=== PATIENT | male | born 1965 | race American Indian/Alaskan Native ===

== ENCOUNTER 2019-01-09 14:18 | Emergency (ER) | payer SELFPAY ==
--- NOTE | 2019-01-09 14:26 | Emergency Department Report ---
Blank Doc - Documentation Documentation: This is a 53-year-old male that presents with nausea vomiting and abdominal pain x2 days. Denies any chest pain or shortness of breathe. Denies headache or any other complaints/symptoms. This initial assessment diagnostic orders/clinical plan/treatment(s) is/are subject to change based on patient's health status, clinical progression and re- assessment by fellow clinical providers in the ED. Further treatment and workup at subsequent clinical providers discretion. Patient/guardians urged not to elope from ED s their condition may be serious if not clinically assessed and managed. Initial orders include: 1-Patient sent to [facility] for further evaluation and treatment 2- Labs 2- UA
[2019-01-09 14:50] LABS: Bilirubin,Urine NEG (Negative); Blood,Urine NEG (Negative); Color,Urine Amber (Yellow); Mucus,Urine 3+ /HPF
[2019-01-09] MEDS ORDERED: ZOFRAN IV ONE (15:02)
[2019-01-09] MEDS ORDERED: PEPCID IV ONE (15:02)
[2019-01-09] MEDS ORDERED: NACL 0.9% 1000 ML 1,000 ML IV ONE (15:02)
[2019-01-09 15:05] LABS: Protein,Urine >500 mg/dL (Negative)
[2019-01-09 15:06] LABS: Hematocrit 53.9 % (35.5-45.6); Hemoglobin 18.9 gm/dl (11.8-15.2); Mean Corpuscular HGB Conc 35 % (32-34); Mean Corpuscular Volume 86 fl (84-94); Platelet Count 323 K/mm3 (140-440); Red Blood Count 6.28 M/mm3 (3.65-5.03); Red Cell Distribution Width 13.3 % (13.2-15.2)
[2019-01-09 15:21] LABS: Alanine Aminotransferase 14 units/L (7-56); Albumin 4.6 g/dL (3.9-5); BUN/Creatinine Ratio 30; Blood Urea Nitrogen 27 mg/dL (9-20); Calcium 9.7 mg/dL (8.4-10.2); Hemolysis Index 82
--- NOTE | 2019-01-09 16:45 | Emergency Department Report ---
Addendum entered and electronically signed by NANCIE SLOAN PA 01/09/19 20:21: Patient given prescription for Norvasc and HCTZ. Original Note: <SOREN NERI - Last Filed: 01/09/19 16:41> ED N/V/D HPI - General Chief complaint: Nausea/Vomiting/Diarrhea Stated complaint: VOMITING,COLD SWEATS/CHEST PAIN Time Seen by Provider: 01/09/19 14:21 Source: patient Mode of arrival: Ambulatory Limitations: No Limitations - History of Present Illness Initial comments: Patient is a 53-year-old -[place] male who is presenting with nausea vomiting for the past 2 days. Patient states he's had some episodes of diaphoresis as well. States the nausea vomiting accompanied with some cramping in the epigastrium. States the pain is very minimal as a 2 out of 10 in severity. Patient denies any cough cold congestion and body aches at this time. Patient does have a history of hypertension but does not take medications at this time. - Related Data Previous Rx's Medication Instructions Recorded Last Taken Type Dicyclomine [Bentyl] 40 mg PO QID 3 Days #12 tablet 01/09/19 Unknown Rx Ondansetron [Zofran ODT TAB] 8 mg PO Q8HR PRN #12 tab.rapdis 01/09/19 Unknown Rx Allergies Allergy/AdvReac Type Severity Reaction Status Date / Time No Known Allergies Allergy Unverified 01/09/19 14:21 ED Review of Systems Comment: All other systems reviewed and negative ED Past Medical Hx - Past Medical History Previous Medical History?: No - Surgical History Past Surgical History?: Yes Additional Surgical History: facial surgery - Social History Smoking Status: Never Smoker Substance Use Type: None - Medications Home Medications: Home Medications Medication Instructions Recorded Confirmed Last Taken Type Dicyclomine [Bentyl] 40 mg PO QID 3 Days #12 tablet 01/09/19 Unknown Rx Ondansetron [Zofran ODT TAB] 8 mg PO Q8HR PRN #12 tab.rapdis 01/09/19 Unknown Rx ED Physical Exam - General Limitations: No Limitations General appearance: alert, in no apparent distress - Head Head exam: Present: atraumatic, normocephalic - Eye Eye exam: Present: normal appearance - ENT ENT exam: Present: mucous membranes moist - Neck Neck exam: Present: normal inspection - Respiratory Respiratory exam: Present: normal lung sounds bilaterally. Absent: respiratory distress, wheezes, rales, rhonchi - Cardiovascular Cardiovascular Exam: Present: regular rate, normal rhythm. Absent: systolic murmur, diastolic murmur, rubs, gallop - GI/Abdominal GI/Abdominal exam: Present: soft, normal bowel sounds. Absent: distended, tenderness, guarding, rebound, rigid - Rectal Rectal exam: Present: deferred - Extremities Exam Extremities exam: Present: normal inspection - Back Exam Back exam: Present: normal inspection - Neurological Exam Neurological exam: Present: alert, oriented X3 - Psychiatric Psychiatric exam: Present: normal affect, normal mood - Skin Skin exam: Present: warm, dry, intact, normal color. Absent: rash ED Medical Decision Making - Lab Data Result diagrams: 01/09/19 14:46 01/09/19 14:46 Lab Results 01/09/19 01/09/19 01/09/19 Range/Units 14:34 14:46 14:46 WBC 9.7 (4.5-11.0) K/mm3 RBC 6.28 H (3.65-5.03) M/mm3 Hgb 18.9 H (11.8-15.2) gm/dl Hct 53.9 H (35.5-45.6) % MCV 86 (84-94) fl MCH 30 (28-32) pg MCHC 35 H (32-34) % RDW 13.3 (13.2-15.2) % Plt Count 323 (140-440) K/mm3 Lymph % (Auto) Ribbon Sweatband Operator [place] % (Auto) Ribbon Sweatband Operator Eos % (Auto) Ribbon Sweatband Operator Baso % (Auto) Ribbon Sweatband Operator Lymph # Ribbon Sweatband Operator [place] # Ribbon Sweatband Operator Eos # Ribbon Sweatband Operator Baso # Ribbon Sweatband Operator Seg Neutrophils % Ribbon Sweatband Operator Seg Neutrophils # Ribbon Sweatband Operator Sodium 136 L (137-145) mmol/L Potassium 3.9 (3.6-5.0) mmol/L Chloride 94.6 L (98-107) mmol/L Carbon Dioxide 24 (22-30) mmol/L Anion Gap 21 mmol/L BUN 27 H (9-20) mg/dL Creatinine 0.9 (0.8-1.5) mg/dL Estimated GFR > 60 ml/min BUN/Creatinine Ratio 30 % Glucose 129 H (75-100) mg/dL Calcium 9.7 (8.4-10.2) mg/dL Total Bilirubin 2.70 H (0.1-1.2) mg/dL AST 25 (5-40) units/L ALT 14 (7-56) units/L Alkaline Phosphatase 54 (35-129) units/L Total Protein 8.1 (6.3-8.2) g/dL Albumin 4.6 (3.9-5) g/dL Albumin/Globulin Ratio 1.3 % Lipase 25 (13-60) units/L Urine Color Zaynab (Yellow) Urine Turbidity Clear (Clear) Urine pH 5.0 (5.0-7.0) Ur Specific [place] 1.032 H (1.003-1.030) Urine Protein >500 (Negative) mg/dL Urine Glucose (UA) Neg (Negative) mg/dL Urine Ketones 20 (Negative) mg/dL Urine Blood Neg (Negative) Urine Nitrite Neg (Negative) Urine Bilirubin Neg (Negative) Urine Urobilinogen 4.0 (<2.0) mg/dL Ur Leukocyte Esterase Neg (Negative) Urine WBC (Auto) 4.0 (0.0-6.0) /HPF Urine RBC (Auto) 7.0 (0.0-6.0) /HPF U Epithel Cells (Auto) 1.0 (0-13.0) /HPF Urine Mucus 3+ /HPF ED Disposition Clinical Impression: Elevated bilirubin, Elevated blood pressure reading without diagnosis of hypertension Nausea and vomiting Qualifiers: Vomiting type: unspecified Vomiting Intractability: non-intractable Qualified Code(s): R11.2 - Nausea with vomiting, unspecified Abdominal pain Qualifiers: Abdominal location: unspecified location Qualified Code(s): R10.9 - Unspecified abdominal pain Disposition: DC-01 TO HOME OR SELFCARE Condition: Stable Instructions: Abdominal Pain (ED), Acute Nausea and Vomiting (ED) Additional Instructions: He will need to follow-up with primary care physician and commercial interior designer regarding in further evaluation of abdominal pain with possible enlarged p ancreatic head. He will also need to follow up with primary care regarding elevated blood pressure. Please keep a record a few blood pressure daily and take 2 year first primary care physician with you Take Zofran and Bentyl for stomach upset. If symptoms returns, return to the emergency room [facility] Please start off with bland diet to include rice, applesauce, benign and toes over the next 3 days and then you can advance. Avoid spicy food and carbonated an acidic beverages. Referrals: JUAN DURANT MD [Primary Care Provider] - 01/11/19 [facility] [Provider Group] - 01/11/19 Forms: Work/School Release Form(ED), Accompanied Note <NANCIE SLOAN - Last Filed: 01/09/19 20:18> ED N/V/D HPI - History of Present Illness Initial comments: His stated inpatient triage note that he was having chest pain also the patient denied having any chest pain. Patient also denies any alcohol use. MD complaint: nausea, vomiting, abdominal pain Onset/Timin -: days(s) Description of Vomiting: food contents, watery, bilious Associated Abdominal Pain: Yes (cramp into epigastric area) Location: epigastric Radiation: none Severity: mild Pain Scale: 2 Quality: cramping Consistency: constant Improves with: none Worsens with: none Context: other (unknown) Associated Symptoms: diaphoresis, fever/chills (chills), loss of appetite, nausea/vomiting. denies: myalgias, chest pain, cough, headaches, malaise, rash, dysuria, shortness of breath, syncope, weakness ED Review of Systems ROS: Stated complaint: VOMITING,COLD SWEATS/CHEST PAIN Other details as noted in HPI Constitutional: chills ENT: denies: throat pain, congestion Respiratory: denies: cough, shortness of breath, SOB with exertion, SOB at rest, wheezing Cardiovascular: denies: chest pain, palpitations, dyspnea on exertion, edema, syncope Gastrointestinal: abdominal pain, nausea, vomiting. denies: diarrhea, constip ation, hematemesis, melena, hematochezia Genitourinary: denies: dysuria, hematuria Musculoskeletal: denies: back pain, joint swelling, arthralgia, myalgia Skin: denies: rash Neurological: denies: headache, numbness, paresthesias, abnormal gait, vertigo ED Past Medical Hx - Past Medical History Previous Medical History?: No - Surgical History Past Surgical History?: Yes - Family History Family history: hypertension (he has hypertension) ED Physical Exam - Eye Eye exam: Present: PERRL, EOMI. Absent: scleral icterus - ENT ENT exam: Present: normal exam, normal orophraynx, TM's normal bilaterally, normal external ear exam - Neck Neck exam: Present: full ROM. Absent: tenderness - Respiratory Respiratory exam: Absent: chest wall tenderness - Cardiovascular Cardiovascular Exam: Present: normal heart sounds - GI/Abdominal GI/Abdominal exam: Absent: organomegaly, mass, bruit - Extremities Exam Extremities exam: Present: full ROM, normal capillary refill, other (No cce. + 2 pulses in all extremities, no neurovascular compromise). Absent: tenderness, pedal edema, joint swelling - Back Exam Back exam: Present: full ROM, other (embolism without any difficulties). Absent: tenderness, CVA tenderness (R), CVA tenderness (L), muscle spasm, rash noted - Neurological Exam Neurological exam: Present: normal gait ED Course Vital Signs 01/09/19 01/09/19 01/09/19 14:25 17:07 17:21 Temperature 98.2 F 98.4 F Pulse Rate 88 88 88 Respiratory 16 16 Rate Blood Pressure 189/127 180/126 180/126 Blood Pressure [Right] O2 Sat by Pulse 98 97 Oximetry 01/09/19 01/09/19 01/09/19 17:23 18:10 19:08 Temperature Pulse Rate Respiratory 16 Rate Blood Pressure 146/96 Blood Pressure 146/96 [Right] O2 Sat by Pulse Oximetry - Reevaluation(s) Reevaluation #1: 01/09/19 17:44 Patient is here for fever, sweats nausea vomiting and abdominal pain. He was found to have elevated blood pressure and was given labetalol and his blood pressure remained high. He said his nausea and vomiting and abdominal pain is better. He received 1 L of normal saline while in emergency room. He is awaiting his ultrasound results due to elevated bilirubin. Patient received additional 20 mg of labetalol IV and will recheck his blood pressure. Abdomen is soft, nontender to palpate. Reevaluation #2: 01/09/19 18:34 Patient reports that he is feeling much better. He is nontender to palpate in his abdomen and blood pressure has stabilized. I will give patient Norvasc and HCTZ before he goes and will give prescription for Norvasc and HCTZ. Reevaluation #3: 01/09/19 20:09 Patient is stable and he was given Norvasc and HCTZ prior to discharge. Ultrasound is stable except that mentioned the patient with enlarged pancreatic head which is questionable and CT scan is recommended. I spoke with Dr. Church who reviewed patient's chart including labs and patient can discharged home to follow-up with commercial interior designer and also to follow up with his primary care for management of that pressure. Patient currently has no nausea, vomiting and her abdominal pain. ED Medical Decision Making - Lab Data Result diagrams: 01/09/19 14:46 01/09/19 14:46 - Radiology Data Radiology results: report reviewed Ultrasound of abdomen limited dictated by radiologist and reportedly by myself. See details below Findings [facility] [address] [place] [address] Ultrasound Report Signed Patient: CASTRO CARVAJAL MR#: [id number] : 1965 Acct:[id number] Age/Sex: 53 / M ADM Date: 01/09/19 Loc: ED Attending Dr: Ordering Physician: SOREN NERI MD Date of Service: 01/09/19 Procedure(s): US abdomen limited Accession Number(s): [id number] cc: SOREN NERI MD FINAL REPORT PROCEDURE: Limited abdominal ultrasound. TECHNIQUE: Real-time sonography was performed of the right upper quadrant of the abdomen with image documentation. CPT 54220 HISTORY: Right upper quadrant abdominal pain with nausea and vomiting. COMPARISON: No prior studies are available for comparison. FINDINGS: The pancreatic head may be enlarged, but this is suboptimally visualized. I would recommend a CT scan following oral and IV contrast for better evaluation. The liver has uniform echogenicity. There are no focal masses. The portal vein is patent by color flow imaging. The proximal portion of the abdominal aorta has a normal caliber. The inferior vena cava is patent. The gallbladder is adequately distended with normal wall thickness. There are no gallstones. The common hepatic duct measures 2.6 millimeters. The right kidney appears normal in size. There is no hydronephrosis. There is a calculus in the right kidney measuring 5 millimeters in maximum dimension. IMPRESSION: Nonobstructing right renal calculus. Possible enlargement of the pancreatic head with further evaluation recommended. Transcribed By: MRM Dictated By: BROOKE STEPHENS MD Electronically Authenticated By: BROOKE STEPHENS MD Signed Date/Time: 01/09/19 1800 DD/ 57 TD/TT: 01/09/191757 - Differential Diagnosis pancreatitis, liver disease, appendicitis, colitis,malignant,UTI, enteritis Critical care attestation.: If time is entered above; I have spent that time in minutes in the direct care of this critically ill patient, excluding procedure time. ED Disposition Is pt being admited?: No Does the pt Need Aspirin: No
[2019-01-09] MEDS ORDERED: NORMODYNE IV ONE ×2 (17:14→17:18)
--- NOTE | 2019-01-09 18:00 | Ultrasound Report ---
FINAL REPORT PROCEDURE: Limited abdominal ultrasound. TECHNIQUE: Real-time sonography was performed of the right upper quadrant of the abdomen with image documentation. CPT 40550 HISTORY: Right upper quadrant abdominal pain with nausea and vomiting. COMPARISON: No prior studies are available for comparison. FINDINGS: The pancreatic head may be enlarged, but this is suboptimally visualized. I would recommend a CT scan following oral and IV contrast for better evaluation. The liver has uniform echogenicity. There are no focal masses. The portal vein is patent by color flow imaging. The proximal portion of the abdomin al aorta has a normal caliber. The inferior vena cava is patent. The gallbladder is adequately disten ded with normal wall thickness. There are no gallstones. The common hepatic duct measures 2.6 millime ters. The right kidney appears normal in size. There is no hydronephrosis. There is a calculus in the right kidney measuring 5 millimeters in maximum dimension. IMPRESSION: Nonobstructing right renal calculus. Possible enlargement of the pancreatic head with further evaluat ion recommended.
[2019-01-09 18:11] VITALS: BP 146/96
[2019-01-09] MEDS ORDERED: NORVASC PO ONE (18:40)
[2019-01-09] MEDS ORDERED: HCTZ PO ONE (18:40)
== END 2019-01-09 20:33 | disposition home or self-care (01) ==
LOC: ED 14:18
DX: R11.2 Nausea with vomiting, unspecified (principal); R10.13 Epigastric pain; R17 Unspecified jaundice; R61 Generalized hyperhidrosis; R03.0 Elevated blood-pressure reading, without diagnosis of hypertension
CPT/HCPCS: 36415; 76705; 80053; 81001; 83690; 85025; 96361; 96374; 96375; 99284; J2405; J7030